=== PATIENT | female | born 1970 | race Caucasian/White ===

== ENCOUNTER 2019-07-29 01:16 | Emergency (ER) | payer OTHER ==
[2019-07-29 01:22] VITALS: TEMP 98.1
--- NOTE | 2019-07-29 01:35 | ED ---
General Adult HPI - General Chief complaint: Allergic Reaction Stated complaint: Allergic Reaction Time Seen by Provider: 07/29/19 01:26 Source: patient Mode of arrival: ambulatory Limitations: no limitations - History of Present Illness Initial comments: Jailene is a 48-year-old female presents the ER today for evaluation of lip and tongue swelling. Patient reports this happened about a month ago she was seen in an urgent care and told that it was likely something she ate. Patient reports that today at work she noticed some swelling of her left eyelid think anything of it, tonight she began feeling tingling around her lips when she was falling asleep, she woke during the night and felt like her lip and tongue were swollen. She looked in the near noted that the right side of her upper lip seemed to be very swollen and her tongue seemed to be very swollen. Patient stated that felt like it was somewhat difficult to swallow she had very anxious and called her parents to bring her to the emergency department. Patient denies any wheezing or shortness of breath. She is tolerating oral secretions able speak clearly. - Related Data Allergies Allergy/AdvReac Type Severity Reaction Status Date / Time amoxicillin [From Augmentin] Allergy Unknown Verified 07/29/19 01:22 clavulanic acid Allergy Unknown Verified 07/29/19 01:22 [From Augmentin] KATHARINE Inhibitors AdvReac Swelling Verified 07/29/19 01:35 Review of Systems ROS Statement: Those systems with pertinent positive or pertinent negative responses have been documented in the HPI. ROS Other: All systems not noted in ROS Statement are negative. Past Medical History Past Medical History: Hypertension History of Any Multi-Drug Resistant Organisms: None Reported Past Surgical History: Section, Cholecystectomy Additional Past Surgical History / Comment(s): wrist Past Psychological History: No Psychological Hx Reported Smoking Status: Never smoker Past Alcohol Use History: Occasional Past Drug Use History: None Reported General Exam - General Exam Comments Initial Comments: Physical Exam GENERAL: Patient is well-developed and well-nourished. Patient is nontoxic and well- hydrated and is in no distress. HENT: Normocephalic, Atraumatic. Angioedema of the right side of the upper lip noted Angioedema of the left eyelid Angioedema of the right side of the tongue, no angioedema of the uvula or posterior oropharynx noted EYES: PERRL, EOMI PULMONARY: Unlabored respirations. No audible rales rhonchi or wheezing was noted. CARDIOVASCULAR: Tachycardic, regular. ABDOMEN: Soft and nontender with normal bowel sounds. SKIN: Skin is clear with no lesions or rashes and otherwise unremarkable. : Deferred NEUROLOGIC: Patient is alert and oriented x3. Moving all extremities spontaneously MUSCULOSKELETAL: Normal extremities with adequate strength and full range of motion. No lower extremity swelling or edema. No calf tenderness. PSYCHIATRIC: Normal psychiatric evaluation. Limitations: no limitations Course Vital Signs 07/29/19 07/29/19 07/29/19 01:19 02:10 03:29 Temperature 98.1 F Pulse Rate 141 H 110 H 100 Respiratory 20 18 18 Rate Blood Pressure 150/85 129/75 127/83 O2 Sat by Pulse 100 98 99 Oximetry Medical Decision Making - Medical Decision Making Patient was seen and evaluated, history is obtained from patient and parents at bedside 48-year-old female who is experiencing her second ever episode of angioedema. Initial episode was attributed to possible food however patient is on lisinopril and this is her second episode within one month. I suspect this is due to lisinopril. Initially angioedema was treated with IV TXA, patient was reevaluated 90 minutes after medication she did have reduced angioedema of the right side of her tongue, resolution of the angioedema of her left eyelid and minimal improvement around her lips Patient was treated with additional steroids and Benadryl. Given that the patient is improving now worsening has a stable airway is able speak swallow and has been drinking water throughout her stay in the emergency department with the patient her parents and they're comfortable with plan for discharge home and outpatient follow-up. I did advise the patient that she should report an ALLERGY to KATHARINE inhibitor's as a cause angioedema. This was documented in her chart as well. Return parameters were discussed all questions pertaining care were answered the patient was discharged home in stable condition. Heart rate improved significantly upon discharge. Disposition Clinical Impression: Angioedema Disposition: HOME SELF-CARE Condition: Stable Instructions (If sedation given, give patient instructions): Angioedema (ED) Additional Instructions: Stop taking lisinopril Follow up with primary care physician to discuss management of hypertension Return to the emergency department if you have any worsening swelling, difficulty speaking swallowing or any new or concerning symptoms Is patient prescribed a controlled substance at d/c from ED?: No Referrals: None,Stated [REFERRING] - 1-2 days
[2019-07-29] MEDS ORDERED: TRANEXAMIC ACID 1,000 MG in SODIUM CHLORIDE 0.9% 100 ML IVPB ONE (02:00)
[2019-07-29 02:12] VITALS: RESP 18
[2019-07-29 03:31] VITALS: BP 127/83; PULSE 100
[2019-07-29] MEDS ORDERED: diphenhydrAMINE 50 MG/ML 1 ML VIAL IVP STA (04:06)
[2019-07-29] MEDS ORDERED: methylPREDNISolone SOD SUCCI 125 MG/2 ML VIAL IV STA (04:06)
== END 2019-07-29 04:36 | disposition home or self-care (01) ==
LOC: EC 01:16
DX: T78.3XXA Angioneurotic edema, initial encounter (principal); Z88.0 Allergy status to penicillin; Z88.8 Allergy status to other drugs, medicaments and biological substances
CPT/HCPCS: 99284; 96365; 96375 ×2; J1200; J2930

== ENCOUNTER → 2020-08-24 | Outpatient (CLI) | payer OTHER ==
[2020-08-25 06:13] LABS: Clam IgE <0.10 kU/L
[2020-08-25 06:14] LABS: Egg White IgE <0.10 kU/L; Peanut IgE <0.10 kU/L
[2020-08-25 06:15] LABS: Scallop IgE <0.10 kU/L; Shrimp IgE <0.10 kU/L
[2020-08-25 06:22] LABS: Soybean IgE <0.10 kU/L; Walnut IgE (Food) <0.10 kU/L
[2020-08-25 14:37] LABS: Almond IgE <0.10 kU/L (<0.10); Almond IgE Class CLASS 0
[2020-08-25 14:38] LABS: Cashew IgE <0.10 kU/L (<0.10); Cashew IgE Class CLASS 0; Pecan IgE <0.10 kU/L (<0.10); Pecan IgE Class CLASS 0
[2020-08-25 14:39] LABS: Crab IgE 0.12 kU/L (<0.10); Crab IgE Class CLASS 0/1; Pistachio IgE Class CLASS 0
[2020-08-25 14:40] LABS: Casein IgE Class CLASS 0; Lobster IgE <0.10 kU/L (<0.10); Lobster IgE Class CLASS 0
== END | disposition home or self-care (01) ==
LOC: LABWHC1 16:26
PROVIDERS: ATTEND Allergy & Immunology
DX: T78.3XXA Angioneurotic edema, initial encounter (principal)
CPT/HCPCS: 36415; 86003

== ENCOUNTER → 2022-05-04 | Outpatient (CLI) | payer OTHER ==
--- NOTE | 2022-05-04 15:20 | MR ---
EXAMINATION TYPE: MR brain wo/w con DATE OF EXAM: 05/04/2022 COMPARISON: None HISTORY: Amaurosis fugax, migraine, blackout of vision quickly. TECHNIQUE: Multiplanar, multisequence images of the brain and brainstem is performed without and with IV contras t, utilizing 7.5 mL intravenous Gadavist . FINDINGS: Diffusion weighted images demonstrate no evidence of a recent infarct or other diffusion ab normality. There is no extra-axial fluid collection. A few T2/FLAIR hyperintensity foci demonstrated within the bilateral subcortical white matter of the frontal lobes measuring up to 3 mm. No correspo nding contrast enhancement. The ventricular system and cisternal spaces are normal in size and appear ance. The brain volume is age appropriate. Midline structures demonstrate normal morphology. The craniocervical junction appears within normal limits. Post contrast images demonstrate no abnormal enhancement. The dural venous sinuses appear pa tent. The visualized sinuses are clear and the globes are intact. IMPRESSION: 1. No acute ischemia or abnormal contrast enhancement. 2. A few nonspecific white matter hyperintense foci which may relate to small vessel ischemic diseas e versus demyelination versus migraine.
== END | disposition home or self-care (01) ==
LOC: RADMRIMAIN 13:45
PROVIDERS: ATTEND Family Medicine
DX: G45.3 Amaurosis fugax (principal); G43.109 Migraine with aura, not intractable, without status migrainosus; G43.909 Migraine, unspecified, not intractable, without status migrainosus
CPT/HCPCS: 70553; A9585

== ENCOUNTER → 2022-05-11 | Outpatient (CLI) | payer OTHER ==
--- NOTE | 2022-05-14 07:59 | MM ---
Reason for Exam: Screening (asymptomatic). Last mammogram was performed 5 year(s) and 0 month(s) ago. Patient History: Menarche at age 11. First Full-Term at age 20. Hormonal Contraceptives for 2 years until age 39. Risk Values: Lora 5 year model risk: 1.0%. NCI Lifetime model risk: 8.7%. Prior Study Comparison: 05/04/2014 Bilateral Screening Mammogram, [facility]. 05/07/2016 Bilateral Screening Mammogram, [facility]. 05/07/2017 Bilateral Screening Mammogram, [facility]. Tissue Density: There are scattered fibroglandular densities. Findings: Analyzed By CAD. There are benign-appearing bilateral axillary lymph nodes are redemonstrated. There is no suspicious new group of microcalcifications or new suspicious mass in either breast. Overall Assessment: Negative, BI-RAD 1 Management: Screening Mammogram of both breasts in 1 year. A clinical breast exam by your physician is recommended on an annual basis and results should be correlated with mammographic findings. Electronically signed and approved by: Ok Emmanuel M.D.
== END | disposition home or self-care (01) ==
LOC: RADMAMWWP 09:29
PROVIDERS: ATTEND Family Medicine
DX: Z12.31 Encounter for screening mammogram for malignant neoplasm of breast (principal)
CPT/HCPCS: 77067

== ENCOUNTER → 2024-04-29 | Outpatient (CLI) | payer OTHER ==
--- NOTE | 2024-04-29 09:19 | MM ---
Reason for Exam: Screening (asymptomatic). Last mammogram was performed 2 year(s) and 0 month(s) ago. Patient History: Menarche at age 11. First Full-Term at age 20. Hormonal Contraceptives for 2 years until age 39. Risk Values: Lora 5 year model risk: 1.1%. NCI Lifetime model risk: 8.4%. Prior Study Comparison: 05/07/2016 Bilateral Screening Mammogram, [facility]. 05/07/2017 Bilateral Screening Mammogram, [facility]. 05/11/2022 Bilateral MG screening mammo w CAD, [facility]. Tissue Density: There are scattered areas of fibroglandular density. Findings: Analyzed By CAD. Right breast: There is no suspicious group of microcalcifications or new suspicious mass. Left breast: There is no suspicious group of microcalcifications or new suspicious mass. Overall Assessment: Negative, BI-RAD 1 Management: Screening Mammogram of both breasts in [address] [facility] will attempt to contact patient to return for supplemental views and ultrasound if indicated. Patient should continue monthly self-breast exams. A clinical breast exam by your physician is recommended on an annual basis. This exam should not preclude additional follow-up of suspicious palpable abnormalities. Note on Lora scores and lifetime risk: 1. A Lora score greater than 3% is considered moderate risk. If this is the case, consider specialist referral to assess eligibility for a risk reducing agent. 2. If overall lifetime risk for the development of breast cancer is 20% or higher, the patient may qualify for future screening with alternating mammogram and breast MRI. [facility], , 04/29/2024 9:15 AM. Electronically signed and approved by: Flo Samuel DO
== END | disposition home or self-care (01) ==
LOC: RADMAMWWP 08:31
PROVIDERS: ATTEND Obstetrics & Gynecology
DX: Z12.31 Encounter for screening mammogram for malignant neoplasm of breast (principal); R92.323 Mammographic fibroglandular density, bilateral breasts
CPT/HCPCS: 77067